=== PATIENT | female | born 1955 | race Caucasian/White ===

== ENCOUNTER 2022-12-07 12:55 | Outpatient (REF) | payer MEDICARE, SELFPAY ==
--- NOTE | ~2022-12-07 | XR_ITS ---
EXAMINATION: XR LUMBOSACRAL SPINE CLINICAL INFORMATION: 67 year old with sacrococcygeal disorders, not elsewhere classified. COMPARISON: None available. TECHNIQUE: AP, neutral lateral, flexion and extension lateral views were obtained. FINDINGS: There is approximately 28 degrees of levoscoliosis, convex to the left at L1-L2, with the rotatory [id number] lateral listhesis at L3-L4. L5 appears to be a transitional level which is partially sacralized, with 4 nonrib-bearing lumbar-type vertebral bodies. Severe disc space height loss is noted at L1-L2, L2-L3 and L3-L4. Degenerative endplate changes are noted, particularly at L1-L2 on the right. There is multilevel spondylosis throughout these levels. Vertebral body heights are well maintained. There is mild retrolisthesis at L3-L4. There is no evidence for significant instability on flexion-extension views. XR/XR lumbar spine 2-3V IMPRESSION: 1. Transitional lumbosacral anatomy as described above with 4 [id number]-[id number] lumbar-type vertebral bodies. 2. Levoscoliosis and severe multilevel disc degeneration with spondylosis as described above. 3. Mild retrolisthesis at L3-L4 with no evidence for instability on flexion-extension views. 4. No evidence for compression or acute fracture.
== END 2022-12-07 12:56 | disposition home or self-care (01) ==
LOC: HO.HOSX 12:55
PROVIDERS: PCP Physical Medicine & Rehabilitation; Visit Provider Neurological Surgery
DX: M53.3 Sacrococcygeal disorders, not elsewhere classified (principal); G89.29 Other chronic pain
CPT/HCPCS: 72100; 99202

== ENCOUNTER 2022-12-07 12:55 | Outpatient (AMB) | payer MEDICARE, SELFPAY ==
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
== END 2022-12-07 14:02 | disposition home or self-care (01) ==
PROVIDERS: PCP Physical Medicine & Rehabilitation; Visit Provider Neurological Surgery
DX: M53.3 Sacrococcygeal disorders, not elsewhere classified (principal); G89.29 Other chronic pain
CPT/HCPCS: 99205